=== PATIENT | female | born 1990 | race Caucasian/White ===

== ENCOUNTER 2017-09-28 19:21 | Emergency (ER) | payer BC, OTHER ==
[~2017-09-28 19:21] MED LIST: CALC-515 PO; LACT1CAP6 PO; NEXPLANON SC; OMEP-125 PO
--- NOTE | 2017-09-28 19:26 | ER Report ---
History and Physical Time Seen By MD: 19:26 HPI/ROS CHIEF COMPLAINT: Headache HISTORY OF PRESENT ILLNESS: 26-year-old female with a history of migraine headaches. She gets them approximately every monthly. This one is concerning for her and that she was unable to speak for a period of time. This seems somewhat different. She does note or. She's had nausea and vomiting. She notes photophobia. Patient denies fever or chills. Patient denies stiff neck. REVIEW OF SYSTEMS: Respiratory: No cough, no dyspnea. Cardiovascular: No chest pain, no palpitations. Gastrointestinal: As above Musculoskeletal: No back pain. Allergies: Coded Allergies: No Known Drug Allergies (Unverified , 09/28/17) Home Meds Active Scripts Ondansetron (ZOFRAN ODT) 4 Mg Tab.rapdis, 4 MG PO every 6 hours Y for NAUSEA/ VOMITING, #12 TAB TAKE 1 TABLET BY MOUTH EVERY 12 HOURS Prov:JACKIE GARCIA DO 09/28/17 Reported Medications Calcium Carbonate (TUMS) 200 Mg Tab.chew, 200 MG PO DAILY Y for stomach upset, TAB.CHEW 11/21/14 Omeprazole (OMEPRAZOLE) 20 Mg Capsule.dr, 1 CAP PO QDAY TAKE ONE CAPSULE BY MOUTH ONCE A DAY 11/21/14 Lactobacillus Combination No.4 (PROBIOTIC) 1 Each Capsule, 1 EACH PO DAILY, CAPSULE 11/21/14 [nexplanon] No Conflict Check, 1 UNIT SC Q3 years 11/21/14 Past Medical/Surgical History Migraine headaches Reviewed Nurses Notes: Yes Old Medical Records Reviewed: Yes Hx Smoking: No Smoking Status: Never Smoker Exposure to Second Hand Smoke?: No Hx Substance Use Disorder: No Hx Alcohol Use: No Constitutional Vital Sign - Last 24 Hours 09/28/17 09/28/17 09/28/17 09/28/17 19:26 19:27 19:30 19:36 Temp 97.6 Pulse 111 101 Resp 18 18 B/P (MAP) 134/70 134/70 (91) 134/80 (98) Pulse Ox 99 95 O2 Delivery Room Air 09/28/17 09/28/17 09/28/17 09/28/17 19:51 20:00 20:06 20:21 Pulse 87 92 95 Resp 10 11 13 B/P (MAP) 111/66 (81) Pulse Ox 96 98 98 309/28/17 09/28/17 09/28/17 20:30 20:36 20:41 20:56 Pulse 87 74 84 Resp 16 7 10 B/P (MAP) 90/61 (71) Pulse Ox 93 96 92 09/28/17 09/28/17 09/28/17 09/28/17 21:00 21:11 21:16 21:30 Pulse 88 81 Resp 9 18 B/P (MAP) 98/56 (70) 110/63 (79) Pulse Ox 95 94 09/28/17 21:31 Pulse 79 Resp 11 Pulse Ox 93 Physical Exam General Appearance: The patient is alert, has no immediate need for airway protection and no current signs of toxicity. Vital signs stable, afebrile, pulse ox normal HEENT: Pupils equal and round no injection. TMs normal, oropharynx without redness or exudate, mucous members are moist Respiratory: Chest is non tender, lungs are clear to auscultation. Cardiac: regular rate and rhythm Gastrointestinal: Abdomen is soft and non tender, no masses, bowel sounds normal. Musculoskeletal: Neck: Neck is supple and non tender. No meningismus, no lymphadenopathy Extremities have full range of motion and are non tender. Skin: No rashes or lesions. DIFFERENTIAL DIAGNOSIS: After history and physical exam differential diagnosis was considered for headache including but not limited to subarachnoid hemorrhage , cerebrovascular accident migraine headache, tension headache and infectious causes such as meningitis, pharyngitis and sinusitis. Medical Decision Making Data Points Result Diagram: 09/28/17200909/28/172009 Laboratory Hematology Test 09/28/17 19:28 09/28/17 20:10 Urine Color Straw Urine Clarity Slightly-cloudy Urine pH 5.0 pH (4.8-9.5) Urine Specific [place] 1.004 Urine Protein Negative mg/dL (NEGATIVE) Urine Glucose (UA) Negative mg/dL (NEGATIVE) Urine Ketones Negative mg/dL (NEGATIVE) Urine Blood Negative (NEGATIVE) Urine Nitrite Negative (NEGATIVE) Urine Bilirubin Negative (NEGATIVE) Urine Urobilinogen Negative mg/dL (0.2-1.9) Urine Leukocyte Esterase Negative (NEGATIVE) Urine RBC <1 /HPF (0-2/HPF) Urine WBC 3 /HPF (0-5/HPF) Urine Squamous Epithelial Cells Many /LPF (</=FEW) Urine Bacteria Few /HPF (NONE-FEW) Urine Mucus None /HPF (NONE-FEW) Red Blood Count 5.37 M/uL (4.17-5.56) Mean Corpuscular Volume 88.6 fL (80.0-96.0) Mean Corpuscular Hemoglobin 30.8 pg (26.0-33.0) Mean Corpuscular Hemoglobin Concent 34.8 g/dL (32.0-36.0) Red Cell Distribution Width 12.9 % (11.5-14.5) Mean Platelet Volume 7.3 fL (7.2-11.1) Neutrophils (%) (Auto) 52.8 % (39.4-72.5) Lymphocytes (%) (Auto) 37.0 % (17.6-49.6) Monocytes (%) (Auto) 8.2 % (4.1-12.4) Eosinophils (%) (Auto) 1.1 % (0.4-6.7) Basophils (%) (Auto) 0.9 % (0.3-1.4) Nucleated RBC Relative Count (auto) 0.0 /100WBC Neutrophils # (Auto) 4.6 K/uL (2.0-7.4) Lymphocytes # (Auto) 3.3 K/uL (1.3-3.6) Monocytes # (Auto) 0.7 K/uL (0.3-1.0) Eosinophils # (Auto) 0.1 K/uL (0.0-0.5) Basophils # (Auto) 0.1 K/uL (0.0-0.1) Nucleated RBC Absolute Count (auto) 0.00 K/uL Erythrocyte Sedimentation Rate 5 mm/HOUR (0-20) Sodium Level 139 mmol/L (137-145) Potassium Level 3.6 mmol/L (3.5-5.0) Chloride Level 105 mmol/L (98-107) Carbon Dioxide Level 21 mmol/L (22-31) Blood Urea Nitrogen 14 mg/dl (7-18) Creatinine 1.00 mg/dl (0.52-1.04) Glomerular Filtration Rate Calc > 60.0 Random Glucose 120 mg/dl (75-110) Calcium Level 9.8 mg/dl (8.4-10.2) Total Bilirubin 0.4 mg/dl (0.2-1.3) Aspartate Amino Transf (AST/SGOT) 26 U/L (0-35) Alanine Aminotransferase (ALT/SGPT) 26 U/L (0-56) Alkaline Phosphatase 61 U/L (0-126) C-Reactive Protein < 0.5 mg/dl (<1.0) Total Protein 8.0 gm/dl (6.3-8.2) Albumin 4.5 g/dl (3.5-5.0) Human Chorionic Gonadotropin, Qual Negative (NEGATIVE) Chemistry Test 09/28/17 19:28 09/28/17 20:10 Urine Color Straw Urine Clarity Slightly-cloudy Urine pH 5.0 pH (4.8-9.5) Urine Specific [place] 1.004 Urine Protein Negative mg/dL (NEGATIVE) Urine Glucose (UA) Negative mg/dL (NEGATIVE) Urine Ketones Negative mg/dL (NEGATIVE) Urine Blood Negative (NEGATIVE) Urine Nitrite Negative (NEGATIVE) Urine Bilirubin Negative (NEGATIVE) Urine Urobilinogen Negative mg/dL (0.2-1.9) Urine Leukocyte Esterase Negative (NEGATIVE) Urine RBC <1 /HPF (0-2/HPF) Urine WBC 3 /HPF (0-5/HPF) Urine Squamous Epithelial Cells Many /LPF (</=FEW) Urine Bacteria Few /HPF (NONE-FEW) Urine Mucus None /HPF (NONE-FEW) White Blood Count 8.8 k/uL (4.5-11.0) Red Blood Count 5.37 M/uL (4.17-5.56) Hemoglobin 16.6 g/dL (12.0-16.0) Hematocrit 47.6 % (34.0-47.0) Mean Corpuscular Volume 88.6 fL (80.0-96.0) Mean Corpuscular Hemoglobin 30.8 pg (26.0-33.0) Mean Corpuscular Hemoglobin Concent 34.8 g/dL (32.0-36.0) Red Cell Distribution Width 12.9 % (11.5-14.5) Platelet Count 243 K/uL (150-450) Mean Platelet Volume 7.3 fL (7.2-11.1) Neutrophils (%) (Auto) 52.8 % (39.4-72.5) Lymphocytes (%) (Auto) 37.0 % (17.6-49.6) Monocytes (%) (Auto) 8.2 % (4.1-12.4) Eosinophils (%) (Auto) 1.1 % (0.4-6.7) Basophils (%) (Auto) 0.9 % (0.3-1.4) Nucleated RBC Relative Count (auto) 0.0 /100WBC Neutrophils # (Auto) 4.6 K/uL (2.0-7.4) Lymphocytes # (Auto) 3.3 K/uL (1.3-3.6) Monocytes # (Auto) 0.7 K/uL (0.3-1.0) Eosinophils # (Auto) 0.1 K/uL (0.0-0.5) Basophils # (Auto) 0.1 K/uL (0.0-0.1) Nucleated RBC Absolute Count (auto) 0.00 K/uL Erythrocyte Sedimentation Rate 5 mm/HOUR (0-20) Glomerular Filtration Rate Calc > 60.0 Calcium Level 9.8 mg/dl (8.4-10.2) Total Bilirubin 0.4 mg/dl (0.2-1.3) Aspartate Amino Transf (AST/SGOT) 26 U/L (0-35) Alanine Aminotransferase (ALT/SGPT) 26 U/L (0-56) Alkaline Phosphatase 61 U/L (0-126) C-Reactive Protein < 0.5 mg/dl (<1.0) Total Protein 8.0 gm/dl (6.3-8.2) Albumin 4.5 g/dl (3.5-5.0) Human Chorionic Gonadotropin, Qual Negative (NEGATIVE) Urinalysis Test 09/28/17 19:28 Urine Color Straw Urine Clarity Slightly-cloudy Urine pH 5.0 pH (4.8-9.5) Urine Specific [place] 1.004 Urine Protein Negative mg/dL (NEGATIVE) Urine Glucose (UA) Negative mg/dL (NEGATIVE) Urine Ketones Negative mg/dL (NEGATIVE) Urine Blood Negative (NEGATIVE) Urine Nitrite Negative (NEGATIVE) Urine Bilirubin Negative (NEGATIVE) Urine Urobilinogen Negative mg/dL (0.2-1.9) Urine Leukocyte Esterase Negative (NEGATIVE) Urine RBC <1 /HPF (0-2/HPF) Urine WBC 3 /HPF (0-5/HPF) Urine Squamous Epithelial Cells Many /LPF (</=FEW) Urine Bacteria Few /HPF (NONE-FEW) Urine Mucus None /HPF (NONE-FEW) EKG/Imaging Imaging Results: CT scan of the [head] was obtained. The results of the study are no acute findings. The study was read by the radiologist. I viewed the images myself on the PACS system. ED Course/Re-evaluation Clinical Indication for ER IV: Hydration, IV Access ED Course Patient was admitted to an examination room. H&P was done. The differential diagnoses was considered. On clinical examination. Patient has a nonfocal neurologic examination. She is able to speak now. A CT scan without contrast was performed and was unremarkable. Diagnostic laboratory studies show normal white blood cell count, normal sedimentation rate. Patient's treated with IV fluid hydration, Zofran, Toradol, Decadron and Benadryl with complete resolution of her migraine headache. Patient was discharged home with a prescription for Zofran for nausea control to use with her future headaches. Decision to Disposition Date: Sep 28, 2017 Decision to Disposition Time: 21:14 Depart Departure Latest Vital Signs Vital Signs Date Time Temp Pulse Resp B/P (MAP) Pulse Ox O2 Delivery O2 Flow Rate FiO2 09/28/17 21:31 79 11 93 09/28/17 21:30 110/63 (79) 09/28/17 19:26 97.6 Room Air Impression: Primary Impression: Migraine headache Condition: Improved Disposition: HOME OR SELF-CARE Referrals: CRISTINA ORELLANA MD New Scripts Ondansetron (ZOFRAN ODT) 4 Mg Tab.rapdis 4 MG PO every 6 hours Y for NAUSEA/VOMITING, #12 TAB TAKE 1 TABLET BY MOUTH EVERY 12 HOURS Prov: JACKIE GARCIA DO 09/28/17 Patient Instructions: Migraine Headache (ED) Additional Instructions: Follow-up with your primary care if unimproved in 3-5 days or go to the physician listed on your paperwork Problem Qualifiers Primary Impression: Migraine headache Migraine type: with aura Status migrainosus presence: without status migrainosus Intractability: intractable Qualified Codes: G43.119 - Migraine with aura, intractable, without status migrainosus JACKIE GARCIA DO Sep 28, 2017 19:26
[2017-09-28] MEDS ORDERED: NS(*) 0.9% 1000 ML BAG 1,000 ML IV ONE (19:33)
[2017-09-28] MEDS ORDERED: KETOROLAC 30 MG/ML VIAL IVP ONE (19:35)
[2017-09-28] MEDS ORDERED: ONDANSETRON 4 MG/2 ML VIAL IVP ONE (19:35)
[2017-09-28] MEDS ORDERED: DEXAMETHASONE SOD PHOS 10MG/ML IVP ONE (19:35)
[2017-09-28] MEDS ORDERED: diphenhydrAMINE 50 MG/ML VIAL IVP ONE (19:35)
[2017-09-28 20:22] LABS: PLATELET COUNT, AUTOMATED 243 K/uL (150-450)
[2017-09-28] MEDS ORDERED: ONDA4TAB PO (21:15)
--- NOTE | 2017-09-28 21:21 | RADIOLOGY IMAGING REPORT ---
FACILITY: [facility] [place] PATIENT NAME: Josy Castelan : 1990 MR: [id number] V: [id number] EXAM DATE: ORDERING PHYSICIAN: JACKIE GARCIA TECHNOLOGIST: Location: [facility] [place] Patient: Josy Castelan : 1990 Visit/Account:[id number] Date of Sevice: 09/28/2017 EXAMINATION: Head CT without intravenous contrast HISTORY: Headache. COMPARISON: None. TECHNIQUE: Contiguous axial images were obtained from the skull base to the vertex without intraven ous contrast. Sagittal and coronal reformatted images are also submitted. One of the following dose optimization techniques was utilized in the performance of this exam: Autom ated exposure control; adjustment of the mA and/or kV according to the patient's size; or use of an i terative reconstruction technique. Specific details can be referenced in the facility's radiology C T exam operational policy. FINDINGS: Brain and intracranial structures: Ventricles, sulci, and cisterns are normal in size. Silvestre-white ma tter differentiation is maintained. No midline shift, acute hemorrhage, acute infarct, or mass. Calvarium / scalp: Negative. Skull base / visualized face: Negative. Visualized sinuses / orbits: Mild leftward deviation of the nasal septum with nasal septal spur on t he left. IMPRESSION: No acute intracranial abnormality. Report Dictated By: Adriano Reynoso MD at 09/28/2017 9:12 PM Report E-Signed By: Adriano Reynoso MD at 09/28/2017 9:16 PM WSN:[email or web address]
[2017-09-28 21:30] VITALS: BP 110/63
== END 2017-09-28 21:44 | disposition home or self-care (01) ==
LOC: ER 19:37
DX: G43.119 Migraine with aura, intractable, without status migrainosus (principal)
CPT/HCPCS: 70450; 81001; 84703; 85025; 85651; 86140; 96374; 96375; 99284; J1100; J1200; J1885; J2405; J7030; 82040; 82247; 82310; 82374; 82435; 82565; 82947; 84075; 84132; 84155; 84295; 84450; 84460; 84520

== ENCOUNTER → 2017-10-19 | Outpatient (CLI) | payer BC ==
[~2017-10-19] MED LIST changes: +ONDA4TAB PO; +RANI-366 PO; +SUMA50TA34 PO
[2017-10-19 11:07] LABS: PLATELET COUNT, AUTOMATED 271 K/uL (150-450)
== END ==
LOC: LAB 10:54
PROVIDERS: ATTEND Emergency Medicine
DX: R53.83 Other fatigue (principal)
CPT/HCPCS: 36415; 84443; 85025

== ENCOUNTER → 2017-11-17 | Outpatient (CLI) | payer BC | LOC: LAB 12:05 | PROVIDERS: ATTEND Emergency Medicine | DX: Z83.49 Family history of other endocrine, nutritional and metabolic diseases (principal) | CPT/HCPCS: 36415 ==

== ENCOUNTER → 2017-11-24 | Outpatient (CLI) | payer BC | LOC: RESP 01:47 | PROVIDERS: ATTEND Emergency Medicine | DX: J98.4 Other disorders of lung (principal) | CPT/HCPCS: 94060; 94726; 94729 ==

== ENCOUNTER → 2017-11-29 | Outpatient (CLI) | payer BC ==
--- NOTE | 2017-11-29 12:58 | RADIOLOGY IMAGING REPORT ---
FACILITY: [facility] - [place] PATIENT NAME: Josy Castelan : 1990 MR: [id number] V: [id number] EXAM DATE: ORDERING PHYSICIAN: CRISTINA ORELLANA TECHNOLOGIST: Location: Patient: Josy Castelan : 1990 Visit/Account:[id number] Date of Sevice: 11/29/2017 CHEST PA AND LAT HISTORY: Nocturnal hypoxia. COMPARISON: None FINDINGS: Cardiomediastinal contours: The heart size is normal. Lungs and pleura: There is no finding of an infiltrate, lymphadenopathy or pleural effusion. Bones/soft tissues: There are no findings of a fracture. IMPRESSION: Normal chest x-ray without findings of acute disease. Report Dictated By: Attila Hartley MD at 11/29/2017 12:53 PM Report E-Signed By: Attila Hartley MD at 11/29/2017 12:53 PM [id number]:[email or web address]
== END ==
LOC: RAD 12:06
PROVIDERS: ATTEND Emergency Medicine
DX: G47.34 Idiopathic sleep related nonobstructive alveolar hypoventilation (principal)
CPT/HCPCS: 71046

== ENCOUNTER → 2018-04-19 | Outpatient (CLI) | payer BC ==
[~2018-04-19] MED LIST changes: +ALBU8.5H IH
== END ==
LOC: LAB 14:39
PROVIDERS: ATTEND Emergency Medicine
DX: L50.9 Urticaria, unspecified (principal)
CPT/HCPCS: 36415; 82595; 84160; 84165; 86140; 86162; 86706; 86707; 86803; 87340; 87350